=== PATIENT | female | born 1945 | race Caucasian/White ===

== ENCOUNTER → 2017-03-22 | Outpatient (CLI) | payer MEDICARE ==
[~2017-03-22] MED LIST: AMIT25 PO; ATEN-102 PO; CALTTAB5 PO; CENTCHW3 PO; CHOL50006 PO; CO Q100C9 PO; DONE5TAB14 PO; GABA400C5 PO; HYDR-3580 PO; LEVO100T4 PO; NEUR800T PO; TURM500C3 PO; Z.0.COMMODE-3:1; Z.0.WALKERFRONT
[2017-03-22 11:52] LABS: AUTOMATED NEUTROPHIL # 5.9 TH/MM3 (1.8-7.7); BASOPHIL # 0.1 TH/MM3 (0-0.2); BASOPHIL % 0.6 % (0.0-2.0); EOSINOPHIL # 0.2 TH/MM3 (0-0.4); EOSINOPHIL % 2.6 % (0.0-4.0); HEMATOCRIT 46.4 % (35.0-46.0); LYMPH % 25.3 % (9.0-44.0); LYMPHOCYTE # 2.3 TH/MM3 (1.0-4.8); MEAN CELL VOLUME 88.4 FL (80.0-100.0); MEAN CORPUSCULAR HGB CONC 32.8 % (32.0-36.0); MONO % 6.2 % (0.0-8.0); NEUT % 65.3 % (16.0-70.0); PLATELET COUNT 259 TH/MM3 (150-450); RED BLOOD COUNT 5.25 MIL/MM3 (4.00-5.30); WHITE BLOOD COUNT 9.1 TH/MM3 (4.0-11.0)
[2017-03-22 11:57] LABS: HEMO FLAGS AUTO DIFF
[2017-03-22 12:27] LABS: ALT (GPT) 39 U/L (10-53); ANION GAP 8 MEQ/L (5-15); AST (GOT) 22 U/L (15-37); BICARBONATE 29.5 MEQ/L (21.0-32.0); BLOOD UREA NITROGEN 26 MG/DL (7-18); CHLORIDE 103 MEQ/L (98-107); GLOMERULAR FILTRATION RATE 58 ML/MIN (>89); GLUCOSE,FASTING 99 MG/DL (74-99); POTASSIUM 4.1 MEQ/L (3.5-5.1); SODIUM (NA) 140 MEQ/L (136-145)
[2017-03-22 12:30] LABS: ALKALINE PHOSPHATASE 89 U/L (45-117); TOTAL BILIRUBIN ADULT 0.4 MG/DL (0.2-1.0)
[2017-03-22 12:32] LABS: BANDS 1 % (0-6); EOSINOPHILS 1 % (0-4); MYELOCYTES 1 % (0-0); NEUTROPHIL # MANUAL DIFF 6.2 TH/MM3 (1.8-7.7); POLYS (SEG NEUTROPHILS) 66 % (16-70); WBC DIFF SAMPLE 100
[2017-03-22 12:33] LABS: PLATELET ESTIMATE SMEAR NORMAL (NORMAL); PLATELET MORPHOLOGY NORMAL (NORMAL); SCAN/DIFF FINAL DIFF MANUAL
[2017-03-22 13:37] LABS: C. DIFF EPI 027 PRESUMPTIVE NEGATIVE (NEGATIVE); C. DIFF TOXIN PCR NEGATIVE (NEGATIVE)
[2017-03-24 11:52] LABS: IGA SERUM 143 mg/dL (81-463); TISSUE TRANSGLUTAMINASE AB IGG ND U/mL (())
[2017-03-24 15:53] LABS: ENDOMYSIAL AB TITER ND (<1:5); TISSUE TRANSGLUTAMINASE AB LESS THAN 1 U/mL (())
== END ==
LOC: PLAB 08:44
PROVIDERS: ATTEND Internal Medicine Gastroenterology
DX: K52.9 Noninfective gastroenteritis and colitis, unspecified (principal)
CPT/HCPCS: 36415; 80053; 82784; 83516; 85007; 85027; 87328; 87329; 87493; 87506

== ENCOUNTER → 2017-03-31 | Day surgery (SDC) | payer MEDICARE ==
[~2017-03-31] MED LIST changes: +KETOROLAC TROMETHAMINE 30 MG/ML (IVP) VIAL IV PUSH ONE; +LACTATED RINGER'S 1000 ML INJ 1,000 ML ONE; +LIDOCAINE 1%/EPINEPHrine 1:100,000 SOLN 20 ML VIAL ONE; +ONDANSETRON HCL 4 MG/2 ML VIAL IV PUSH ONE; +PROPOFOL 200 MG/20 ML AMP IV ONE; +SODIUM CHLOR 0.9% 250 ML INJ 250 ML IV ONE; +VANCOMYCIN HCL 1000 MG VIAL ONE; +hydrALAZINE HCL 20 MG/ML VIAL ONE
--- NOTE | 2017-03-31 19:23 | TN ---
cc: PATY TALAVERA M.D. DATE OF SURGERY 03/31/2017 PREOPERATIVE DIAGNOSIS Lipomatous mass mid upper back. POSTOPERATIVE DIAGNOSIS Lipomatous mass mid upper back. PROCEDURE Excision 10 cm multilobulated lipomatous mass mid upper back with two-layer closure. SURGEON Dr. Paty Talavera. SPECIAL EDUCATION INCLUSION TEACHER Kenrick Traore R-1 ANESTHESIA General. INDICATIONS A pleasant 71-year-old woman who has noted a soft palpable mass in the upper back that has increased in size. She is desirous of removal. INTRAOPERATIVE FINDINGS Multilobulated lipomatous mass 10 cm maximal diameter, removed and sent to pathology. ESTIMATED BLOOD LOSS Less than 10 ml. DESCRIPTION OF PROCEDURE IN DETAIL The patient identified as Elizabeth Will and taken to operating room, placed in the supine position. Following induction of adequate general anesthesia through a laryngeal mass, the patient was placed in the left lateral decubitus position with all pressure points padded on a lambert bag with an axillary roll. The upper back was prepped and draped in usual sterile fashion with Betadine. A time-out procedure was performed. Following completion of time-out procedure to everyone's satisfaction within the room, proposed incision along the skin lines overlying the mass made with a marking pen, infiltrated local anesthetic. The incision was carried out with scalpel and hemostasis controlled with electrocautery. Dissection continued posteriorly and the multilobulated mass was from the surrounding tissue using combination of sharp dissection, electrocautery and blunt dissection. The mass was removed in its entirety. Several small additional pieces were removed. Once the entirety of the mass was assured to be removed, the wound was irrigated copiously with saline. Small bleeding points were controlled with electrocautery. Once the wound was assured to be dry, it was closed in two layers using interrupted inverted 3-0 Vicryl sutures collapsing the space. 4-0 Monocryl was used in the subcuticular position of the skin. Dressings were applied with Mastisol and one-half inch brown Steri-Strips, gauze and Tegaderm. The patient tolerated the procedure without apparent complication. Sponge, needle and instrument counts were correct at the end of the case. MD NITA Adkins/DIMITRIS /5:14 PM /7:10 PM
== END | disposition home or self-care (01) ==
LOC: ESDC 13:50
PROVIDERS: ATTEND Surgery Trauma Surgery
DX: D17.1 Benign lipomatous neoplasm of skin and subcutaneous tissue of trunk (principal)
CPT/HCPCS: 00300; 21931; 88304; J0360; J1885; J2405; J3010; J3370; J7050; J7120

== ENCOUNTER → 2017-05-21 | Outpatient (CLI) | payer MEDICARE ==
[~2017-05-21] MED LIST changes: -KETOROLAC TROMETHAMINE 30 MG/ML (IVP) VIAL IV PUSH ONE; -LACTATED RINGER'S 1000 ML INJ 1,000 ML ONE; -LIDOCAINE 1%/EPINEPHrine 1:100,000 SOLN 20 ML VIAL ONE; -ONDANSETRON HCL 4 MG/2 ML VIAL IV PUSH ONE; -PROPOFOL 200 MG/20 ML AMP IV ONE; -SODIUM CHLOR 0.9% 250 ML INJ 250 ML IV ONE; -VANCOMYCIN HCL 1000 MG VIAL ONE; -hydrALAZINE HCL 20 MG/ML VIAL ONE
[2017-05-21 13:25] LABS: BLOOD, URINE NEG (NEG); GLUCOSE,URINE NEG (NEG); KETONE, URINE NEG (NEG); MUCUS URINE FEW /lpf (OCC); NITRITE,URINE NEG (NEG); SQUAMOUS EPITHELIAL CELL URINE 1 /hpf (0-5); URINE COLOR YELLOW (YELLW/STRAW)
[2017-05-21 14:02] LABS: HDL CHOLESTEROL 49.1 MG/DL (40.0-60.0)
== END ==
LOC: PLAB 11:40
PROVIDERS: ATTEND Family Medicine
DX: R53.83 Other fatigue (principal); E78.2 Mixed hyperlipidemia; R10.32 Left lower quadrant pain
CPT/HCPCS: 36415; 80061; 81001; 84443

== ENCOUNTER → 2018-03-24 | Outpatient (CLI) | DX: E78.2 Mixed hyperlipidemia (principal); I10 Essential (primary) hypertension; E03.9 Hypothyroidism, unspecified; Z11.59 Encounter for screening for other viral diseases ==

== ENCOUNTER → 2018-04-05 | Outpatient (CLI) | payer MEDICARE ==
[2018-04-05 14:38] LABS: CREATININE 0.76 MG/DL (0.50-1.00)
== END ==
LOC: PLAB 11:57
PROVIDERS: ATTEND Physician Assistant Medical
DX: R10.32 Left lower quadrant pain (principal)
CPT/HCPCS: 36415; 82565; 84520